=== PATIENT | female | born 1955 | race Caucasian/White ===

== ENCOUNTER 2017-07-20 09:27 | Day surgery (SDC) | payer OTHER ==
[2017-07-06 08:07] VITALS: BMI 30.8
[2017-07-20] MEDS ORDERED: ceFAZolin IV 2 gm in Dextrose 1 GM/50 ML BAG IVPB ONE (14:21)
[2017-07-20] MEDS ORDERED: Lidocaine 1% Inj (20ml) ONE ×2 (14:21→14:53)
[2017-07-20] MEDS ORDERED: Bupivacaine-Epi 0.25%-1:200,000 PF Inj ONE (14:21)
[2017-07-20] MEDS ORDERED: Lactated Ringer's 1,000 ML IV ONE (14:45)
[2017-07-20] MEDS ORDERED: Midazolam 2 MG/2 ML VIAL ONE (14:47)
[2017-07-20] MEDS ORDERED: Propofol 10 mg/ml Inj (20 ML) ONE (14:47)
[2017-07-20] MEDS ORDERED: Rocuronium 10 mg/ml (5 ml) ONE ×2 (14:49→14:53)
[2017-07-20] MEDS ORDERED: Succinylcholine Chloride 20 mg/ml Syr (5 ml) IV ONE (14:53)
[2017-07-20] MEDS ORDERED: Bupivacaine 0.5%/Epi 1:200,000 (10 ML SOL) ONE (14:53)
[2017-07-20] MEDS ORDERED: Sodium Chloride 0.9% 500 ML IV ONE (15:10)
[2017-07-20] MEDS ORDERED: Neostigmine Methylsulfate 3mg/3ml Syringe IV ONE (15:58)
--- NOTE | 2017-07-20 16:03 | PCM.SURG1 ---
Surgeon's Initial Post Op Note - Surgeon's Notes Surgeon: Dede Menagerie Caretaker: PGY4 Pre-Operative Diagnosis: Cholelithiasis Operative Findings: Cholelithiasis Post-Operative Diagnosis: Cholelithiasis Operation Performed: Robotic assisted laparoscopic cholecystectomy Specimen/Specimens Removed: gallbladder Estimated Blood Loss: EBL {In ML}: 20 Blood Products Given: N/A Drains Used: No Drains Post-Op Condition: Good Date of Surgery/Procedure: 07/20/17 Time of Surgery/Procedure: 14:45
[2017-07-20] MEDS ORDERED: Oxycodone/Acetaminophen 5/325 mg Tab PO ONE (16:15)
[2017-07-20 18:08] VITALS: BP 121/71; PULSE 74; RESP 16; TEMP 98.1; O2SAT 95
--- NOTE | 2017-07-25 00:48 | OP ---
PROCEDURE DATE: 07/20/2017 PREOPERATIVE DIAGNOSIS: Chronic cholecystitis and cholelithiasis. POSTOPERATIVE DIAGNOSIS: Chronic cholecystitis and cholelithiasis. PROCEDURE: Robotic cholecystectomy. SURGEON: Dr. Aguayo. TODDLER GUIDE: Minerva Vaughn. Minerva was present from the beginning till the end of the procedure, helped in prepping and draping and placement of the port and docking and undocking of the robot. SECOND TODDLER GUIDE: Stiven Bauer, PGY-4 resident. TYPE OF ANESTHESIA: General endotracheal tube anesthesia. ESTIMATED BLOOD LOSS: Around 10 mL. DRAINS: None. PATHOLOGY: Gallbladder gallstone was sent to the pathology. COMPLICATIONS: None. INTRAOPERATIVE FINDINGS: The patient had changes of chronic cholecystitis and cholelithiasis. DESCRIPTION OF PROCEDURE: On intraoperative step, this 62-year-old female was diagnosed with chronic cholecystitis and cholelithiasis and the patient was consented for robotic cholecystectomy, possible open, brought to the OR, placed supine on the operating room table. After induction of the anesthesia, abdomen was prepped and draped in the usual sterile fashion. A supraumbilical transverse 1.5 cm incision was made after incising skin and subcutaneous tissue, the fascia was incised and robotic camera port was placed. Another three robotic ports were placed in the upper abdomen. The robot was brought in, camera arm as well as arm 1 and arm 2 was docked, and gallbladder was retracted cranially. Calot's triangle dissection was done. Cystic duct and cystic artery were identified. Intraoperative firefly was used to identify the ductal anatomy, and after proper identification of the cystic duct and cystic artery, the cystic duct and cystic artery was clipped at three places and cut in between two clips nearby gallbladder, and gallbladder was dissected-free from the gallbladder fossa, taken in an EndoCatch bag, taken out through the umbilical port site and sent over the table for the pathology. There was a proper hemostasis in each and every part of the procedure. All the robotic instruments were taken out. The robot was undocked. All the ports were taken out under vision. Pneumo was deflated. The umbilical port was closed in two layers and skin was sutured with a 4-0 Monocryl. Dry sterile dressing was applied. The patient tolerated the procedure well. Count of the instruments was correct. There was no apparent complications. Sam Aguayo MD
== END 2017-07-20 19:40 | disposition home or self-care (01) ==
LOC: C.SDS 09:27
PROVIDERS: ATTEND Surgery Surgical Critical Care
DX: K80.10 Calculus of gallbladder with chronic cholecystitis without obstruction (principal)
CPT/HCPCS: 47562; 88304; J0690; J1885; J2001; J2250; J2270; J2405; J2704; J2710; J2765; J3010; J7030; J7040; J7120